=== PATIENT | male | born 1980 | race Caucasian/White ===

== ENCOUNTER 2022-07-01 13:32 | Outpatient (CLI) | payer BC, SELFPAY ==
--- NOTE | 2022-07-01 14:00 | CRLHL7_ITS ---
For Patients: As a result of the Century Cures Act, medical imaging exams and procedure reports are released immediately into your electronic medical record. You may view this report before your referring provider. If you have questions, please contact your health care provider. INDICATION: Fall. TECHNIQUE: Noncontrast CT images acquired through the brain. COMPARISON: None. FINDINGS: The ventricles and sulci are within normal limits for patient age. No mass effect or midline shift. The mota-white differentiation is maintained. No acute intracranial hemorrhage or pathologic extra-axial fluid collection. The globes are symmetric. The calvarium is intact. The visualized paranasal sinuses and mastoid air cells are clear. IMPRESSION: No acute intracranial hemorrhage or mass effect. Please note that all CT scans at this facility use dose modulation, iterative reconstruction, and/or weight-based dosing when appropriate to reduce radiation dose to as low as reasonably achievable. Dictated by Jose J Borges MD @ 07/01/2022 2:05:02 PM (Electronically Signed)
== END 2022-07-01 13:33 | disposition home or self-care (01) ==
PROVIDERS: PCP Family Medicine; Visit Provider Family Medicine
DX: S09.90XA Unspecified injury of head, initial encounter (principal)
CPT/HCPCS: 70450

== ENCOUNTER 2023-10-11 15:46 | Outpatient (CLI) | payer BC, SELFPAY | END 2023-10-11 15:47 | disposition home or self-care (01) | PROVIDERS: PCP Family Medicine; Visit Provider Family Medicine | DX: Z13.228 Encounter for screening for other metabolic disorders (principal); Z13.220 Encounter for screening for lipoid disorders; Z13.0 Encounter for screening for diseases of the blood and blood-forming organs and certain disorders involving the immune mechanism | CPT/HCPCS: 80048; 80061; 85025 ==

== ENCOUNTER 2024-08-16 19:46 | Emergency (ER) | payer OTHER, SELFPAY ==
--- OUTSIDE RECORDS SUMMARY | 2024-08-16 19:49 | XMS_ITS | Clinical Summary ---
Author Organization [facility] Address [address] [place] [address]. [place] [address] Care Team Providers Care Face And Fill Packer Name Role Phone [facility], [facility] Primary Care Provider [phone] Allergies Active Allergy Reactions Criticality Noted Date Comments Mold 09/19/2015 Seasonal Allergies 09/19/2015 Saw dust Pollen Extract 09/19/2015 Medications multivitamin, therapeutic with minerals (MULTI-VITAMIN) TABS Take 1 tablet by mouth daily Active venlafaxine (EFFEXOR-XR) 37.5 MG 24 hr capsuleIndicatio ns:Anxiety Take 1 capsule daily for 14 days, then take 2 capsules daily. 46 capsule 1 6 Active Additional Information Patient not taking.Reported on 11/14/2017 Active Problems Problem Noted Date Diagnosed Date Anxiety 03/12/2016 CARDIOVASCULAR SCREENING; LDL GOAL LESS THAN 160 02/05/2014 Immunizations Name Administration Dates Next Due Influenza (IIV3) PF 03/09/2016 TDAP Vaccine (Boostrix) 11/05/2015 Family History Medical History Relation Comments Diabetes Father Family History Negative Father Cerebrovascular Disease Mother stroke Thyroid Disease Mother Relation Status Comments Father Alive Mother Alive Social History Tobacco Use Types Packs/Day Years Used Date Smoking Tobacco: Never Smokeless Tobacco: Former Chew Quit: 10/31/2017 Alcohol Use Standard Drinks/Week Comments Yes 0 (1 standard drink = 0.6 oz pur e alcohol) 3 per wk PHQ-2 Answer Date Recorded PHQ-2 Score 0 05/31/2018 Adolescent Education Answer Date Record ed Getting School Help Needed Not on file 02/27 Sex and Gender Information Value Date Recorded Sex Assigned at Not on file 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 Gender Identity Not on file Sexual Orientation Not on file Last Filed Vital Signs Vital Sign Reading Time Taken Comments Blood Pressure 126/82 11/14/2017 5:46 PM CDT Pulse 79 11/14/2017 5:46 PM CDT Temperature 36.2 C (97.2 F) 11/14/2017 5:46 PM CDT Respiratory Rate 16 01/17/2016 12:0 0 PM CDT Oxygen Saturation 98% 11/14/2017 5:46 PM CDT Inhaled Oxygen Concentration - - Weight 77.6 kg (171 lb) 11/14/2017 5:46 PM CDT Height 175.3 cm (5' 9) 03/09/2016 2:31 PM CDT l ast recorded Body Mass Index 25.25 03/09/2016 2:31 PM CDT Plan of Treatment Not on file Care Teams Face And Fill Packer Relationship Specialty Start Date End Date [facility] [address] [place] [id number] PCP - General 10/05/18
[2024-08-16 20:04] VITALS: BP 155/94; PULSE 95; RESP 18; TEMP 36.8; O2SAT 95; BMI 32.7
--- NOTE | 2024-08-16 21:09 | CRLHL7_ITS ---
For Patients: As a result of the Century Cures Act, medical imaging exams and procedure reports are released immediately into your electronic medical record. You may view this report before your referring provider. If you have questions, please contact your health care provider. Indication: Hit in face with a softball. Technique: CT of the head without contrast. Coronal and sagittal reformats. Bone and soft tissue windows. Comparison: No prior studies available for comparison at this institution. Findings: No acute intracranial hemorrhage or extra-axial collection. No evidence of acute cortical infarction. No mass effect or midline shift. Normal cerebral volume. The ventricles are normal in size, shape and contour. There is normal eagle and white matter differentiation. The orbital contents are normal. No calvarial fractures. No lytic or sclerotic osseous lesions within the calvarium or skull base. Scalp and other imaged soft tissue structures are normal. Mastoid air cells are clear. Paranasal sinuses are well aerated. Moderate soft tissue swelling along the right maxilla. Impression: 1. No acute intracranial abnormality. 2. Moderate soft tissue swelling along the right maxilla. Please note that all CT scans at this facility use dose modulation, iterative reconstruction, and/or weight-based dosing when appropriate to reduce radiation dose to as low as reasonably achievable. Dictated by Elias Jo MD @ 08/16/2024 9:57:15 PM (Electronically Signed)
--- NOTE | 2024-08-16 21:09 | CRLHL7_ITS ---
For Patients: As a result of the Cures Act, medical imaging exams and procedure reports are released immediately into your electronic medical record. You may view this report before your referring provider. If you have questions, please contact your health care provider. Indication: Hit in face with softball Technique: Helical axial sections were obtained through the facial skeleton, mandible and adjacent structures without intravenous contrast material. Comparison: None Findings: No fracture is demonstrated in the facial skeleton or mandible. Moderate swelling along the right facial soft tissues and right inferior periorbital soft tissues likely posttraumatic. The orbits and their contents are normal in appearance. There is no evidence for penetrating injury to the ocular globes. The lenses are situated in their normally expected anterior locations. No radiodense or metallic foreign body is demonstrated. No significant abnormality is demonstrated in the sinonasal cavities or adjacent structures. Trace mucosal thickening along the floors of the maxillary sinuses. Incidental hyper pneumatized sphenoid sinuses. The ostiomeatal complexes on each side are structurally normal and widely patent. The nasal septum deviated to the left. The visualized portions of the brain are normal in appearance. Impression: 1. No facial bone fractures. 2. Moderate swelling along the right facial soft tissues and right inferior periorbital soft tissues likely posttraumatic. 3. Leftward deviation of the nasal septum. Trace mucosal thickening along the floors of the maxillary sinuses. Please note that all CT scans at this facility use dose modulation, iterative reconstruction, and/or weight-based dosing when appropriate to reduce radiation dose to as low as reasonably achievable. Dictated by Elias Jo MD @ 08/16/2024 10:02:17 PM (Electronically Signed)
--- OUTSIDE RECORDS SUMMARY | 2024-08-16 21:19 | XMS_ITS | Clinical Summary ---
Author Organization [facility] Address [address] [place] [address]. 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
--- NOTE | 2024-08-16 22:12 | ED_ITS ---
HPI - Head Injury General Date Seen: 08/16/24 Chief complaint: Head Injury/Pain Stated complaint: Face lac--hit by softball Time Seen by Provider: 08/16/24 21:04 Source: patient Mode of arrival: ambulatory Limitations: no limitations History of Present Illness HPI Narrative: patient is a 44-year-old male presenting to the emergency department after getting hit in the face by a softball. He was practicing with his daughter who is 14 years old when she swung and hit the ball and hitting him in the right cheek. Was initially bleeding but that has since stopped. Does have quite a bit of swelling to the area and states he can see some swelling in his vision but denies any visual changes. His is with him and she states he has been acting normally. States he cause into fall hit the ground but he denies loss of consciousness. No other concerns noted. Denies a headache, neck pain, weakness, numbness. Related Data Previous Rx's ?Medication ?Instructions ?Recorded bupropion HCl 300 mg 24 hr tablet, 300 mg PO QAM #90 tabs 10/11/23 extended release (Wellbutrin XL) Allergies Allergy/AdvReac Type Severity Reaction Status Date / Time Molds & Smuts Allergy Mild Congested Uncoded 01/25/24 10:56 Review of Systems Status of ROS: Reports: 10 or more systems reviewed and unremarkable except as noted in History and below PFSH PFS Medical History Generalized anxiety disorder ?F41.1 - Generalized anxiety disorder (ICD-10) Major depression, recurrent ?F33.9 - Major depressive disorder, recurrent, unspecified (ICD-10) Family History Mother Stroke Uncle Parkinson's disease Prostate cancer Social History Narrative: - [place], nonsmoker What is your current living situation?: I presently have a place to live Problems where you live: no known problems In the past 12 months, utilities in danger of being shut off: no In past 12 months, lack of transportation kept you from medical appts, meetings, work, or getting things needed for daily living: no In the past 12 mos, have been you worried that your food would run out before you had money to buy more?: never true In the past 12 mos, the food you bought just didn't last and you didn't have money to buy more?: never true Smoking Status: Never smoker (chewing tobacco use only) How often does anyone, including family, friends and others, physically hurt you : never How often does anyone, including family, friends and others, insult or talk down to you: rarely How often does anyone, including family, friends and others, threaten you with harm: never How often does anyone, including family, friends and others, scream or curse at you: never Health Related Social Needs: Other personal risk factors, not elsewhere classified (Z91.89) Exam Narrative: Exam Narrative: Const: Well-nourished, Well-developed, in No distress Eyes: PERRL, no conjunctival injection, and symmetrical lids HENT: Atraumatic external nose and ears. Moist mucous membranes. notable swelling to rate cheek with a small abrasion to the right cheek below the eye and bruising below the right eye Neck: Symmetric, trachea midline, No thyromegaly. MSK:Extremities w/o deformity, Normal Active ROM, full range of motion of the neck with no midline cervical tenderness Skin: Warm, Dry. No rashes or lesions. Neuro: Normal Muscle tone, No focal neurological deficits. Psych: Awake, Alert, & Oriented x3. Appropriate mood and affect. Const: Vital Signs, click to edit/add: Vital Signs - 24 hr 08/16/24 20:04 Temperature 98.3 F Pulse Rate [Right Pulse Oximeter] 95 Respiratory Rate 18 Blood Pressure [Ri ght Upper Arm] 155/94 H Pulse Oximetry 95 Oxygen Delivery Me thod Room Air Course Vital Signs Vital signs: Initial Vital Signs Temperature 98.3 F 08/16/24 20:04 Temperature Source Temporal Artery Scan 08/16/24 20:04 Pulse Rate 95 08/16/24 20:04 Pulse Rhythm Regular 08/16/24 20:04 Pulse Strength 3+ Normal 08/16/24 20:04 Respiratory Rate 18 08/16/24 20:04 Blood Pressure 155/94 H 08/16/24 20:04 Blood Pressure Mean 114 H 08/16/24 20:04 Blood Pressure Position Sitting 08/16/24 20:04 Pulse Oximetry 95 03/26/25 20:04 Oxygen Delivery Method Room Air 08/16/24 20:04 Vital Signs Temperature 98.3 F 08/16/24 20:04 Pulse Rate 95 08/16/24 20:04 Respiratory Rate 18 08/16/24 20:04 Blood Pressure 155/94 H 08/16/24 20:04 Pulse Oximetry 95 08/16/24 20:04 Oxygen Delivery Method Room Air 08/16/24 20:04 Temperature 98.3 F 08/16/24 20:04 Pulse Rate 95 08/16/24 20:04 Respiratory Rate 18 08/16/24 20:04 Blood Pressure 155/94 H 08/16/24 20:04 Pulse Oximetry 95 08/16/24 20:04 Oxygen Delivery Method Room Air 08/16/24 20:04 MDM - Head Injury MDM Narrative Medical decision making narrative: patient is a 44-year-old male presenting to the emergency department after being hit in the face by a softball. There is quite a bit of bruising and will do a CT scan of his head and facial bones. He has no neck pain full range of motion of his neck and not believe cervical spine imaging is necessary. The cut on his face has stopped bleeding is relatively small and I do not believe sutures or Dermabond are necessary. Images returned showing no acute concerning abnormalities. He has been doing well his entire time emergency department. He will be discharged. They are agreeable to this plan. Imaging Data CT scan - head: Radiologist's impression: 1. No acute intracranial abnormality. 2. Moderate soft tissue swelling along the right maxilla. Please note that all CT scans at this facility use dose modulation, iterative reconstruction, and/or weight-based dosing when appropriate to reduce radiation dose to as low as reasonably achievable. Dictated by Elias Jo MD @ 08/16/2024 9:57:[address] scan - Facial Bones: Attestation: I have reviewed the pertinent imaging results. Radiologist's impression: 1. No facial bone fractures. 2. Moderate swelling along the right facial soft tissues and right inferior periorbital soft tissues likely posttraumatic. 3. Leftward deviation of the nasal septum. Trace mucosal thickening along the floors of the maxillary sinuses. Please note that all CT scans at this facility use dose modulation, iterative reconstruction, and/or weight-based dosing when appropriate to reduce radiation dose to as low as reasonably achievable. Dictated by Elias Jo MD @ 08/16/2024 10:02:17 PM Discharge Plan Discharge Clinical Impression: Contusion Qualifiers: Encounter type: initial encounter Contusion area: head Contusion of head det ail: other part of head Qualified Code(s): S00.83XA - Contusion of other part of head, initial encounter Patient Disposition: Home, Self-Care Condition: Stable Additional Instructions: The area may be more sore tomorrow. Use ice 3 times a day for 20 minutes to help with swelling. Take Tylenol ibuprofen for pain. Return to emergency department for new or worsening symptoms. you do have a slight nasal septum deviation to the left. This is unlikely to be causing any symptoms but if you do notice difficulty breathing through your nose in the future you may want to follow up with ENT Prescriptions: No Action bupropion HCl [Wellbutrin XL] 300 mg tablet extended release 24 hr 300 mg PO QAM Qty: 90 3RF Rx Instructions: Fill when needed Follow Up/Referrals: Elias Valdes MD [Primary Care Provider] - Stand Alone Forms: [facility] Info Instructions
[2024-08-16 22:17] VITALS: BP 122/76; PULSE 82; RESP 14; O2SAT 94
== END 2024-08-16 22:30 | disposition home or self-care (01) ==
PROVIDERS: Emergency Provider Student in an Organized Health Care Education/Training Program; PCP Family Medicine
DX: S00.83XA Contusion of other part of head, initial encounter (principal); W21.03XA Struck by baseball, initial encounter
CPT/HCPCS: 70450; 70486; 99283; 99284

== ENCOUNTER 2024-12-14 06:28 | Outpatient (CLI) | payer OTHER, SELFPAY ==
--- NOTE | 2024-12-14 07:43 | P.ANES_ITS ---
Anesthesia Charges Start Date/Time Anesthesia Start Date: 12/14/24 Anesthesia Start Time: 07:15 Stop Date/Time Anesthesia Stop Date: 12/14/24 Anesthesia Stop Time: 07:41 Coding CPT Codes CPT Codes: SYDNEY LWR INTST NDSC NOS - 15406 ([id number]) P2 - PATIENT W/MILD SYST DISEASE, QK - ANODIC OPERATOR 2-4 CNCRNT ANES PROC, QX - PSYCHOPAEDIC NURSE SVC W/ MD MED DIRECTION
--- NOTE | 2024-12-14 07:43 | W.ANESCHARGE ---
Anesthesia Charges Start Date/Time Anesthesia Start Date: 12/14/24 Anesthesia Start Time: 07:15 Stop Date/Time Anesthesia Stop Date: 12/14/24 Anesthesia Stop Time: 07:41 Coding CPT Codes CPT Codes: SYDNEY LWR INTST NDSC NOS - 20139 ([id number]) P2 - PATIENT W/MILD SYST DISEASE, QK - SCENIC ARTS SUPERVISOR 2-4 CNCRNT ANES PROC, QX - GENERAL UTILITY WORKER SVC W/ MD MED DIRECTION
--- NOTE | 2024-12-14 08:48 | P.ANES_ITS ---
Anesthesia Charges Start Date/Time Anesthesia Start Date: 12/14/24 Anesthesia Start Time: 07:15 Stop Date/Time Anesthesia Stop Date: 12/14/24 Anesthesia Stop Time: 07:41 Coding CPT Codes CPT Codes: SYDNEY LWR INTST NDSC NOS - 07214 ([id number]) QK - PAYROLL ADMINISTRATIVE ASSISTANT 2-4 CNCRNT SYDNEY PROC, QX - INSIDE POLISHER SVC W/ MD MED DIRECTION, P2 - PATIENT W/MILD SYST DISEASE
--- NOTE | 2024-12-14 08:48 | W.ANESCHARGE ---
Anesthesia Charges Start Date/Time Anesthesia Start Date: 12/14/24 Anesthesia Start Time: 07:15 Stop Date/Time Anesthesia Stop Date: 12/14/24 Anesthesia Stop Time: 07:41 Coding CPT Codes CPT Codes: SYDNEY LWR INTST NDSC NOS - 49410 ([id number]) QK - MICROBIOLOGY LAB TECHNICIAN 2-4 CNCRNT SYDNEY PROC, QX - MANAGED CARE DIRECTOR SVC W/ MD MED DIRECTION, P2 - PATIENT W/MILD SYST DISEASE
== END 2024-12-14 06:29 | disposition home or self-care (01) ==
LOC: OP CLINIC 06:29
PROVIDERS: PCP Family Medicine; Visit Provider Surgery
DX: Z12.11 Encounter for screening for malignant neoplasm of colon (principal); D12.3 Benign neoplasm of transverse colon
CPT/HCPCS: 00811; 00812; 45385; 88305; J2704